=== PATIENT | female | born 1995 | race Caucasian/White ===

== ENCOUNTER 2020-05-29 15:31 | Outpatient (CLI) | payer OTHER, SELFPAY ==
[2020-05-29 16:14] LABS: SARS-CoV-2 Ag Negative (Negative)
== END 2020-05-29 15:32 | disposition home or self-care (01) ==
LOC: CHSLAB 15:38
PROVIDERS: PCP Internal Medicine; Visit Provider Internal Medicine
DX: Z20.828 Contact with and (suspected) exposure to other viral communicable diseases (principal)
CPT/HCPCS: 87426

== ENCOUNTER 2020-06-15 07:32 | Outpatient (CLI) | payer OTHER, SELFPAY ==
[2020-06-15 08:12] LABS: SARS-CoV-2 Ag Negative (Negative)
== END 2020-06-15 07:33 | disposition home or self-care (01) ==
DX: Z20.828 Contact with and (suspected) exposure to other viral communicable diseases (principal)
CPT/HCPCS: 87426

== ENCOUNTER 2021-06-14 09:48 | Outpatient (CLI) | payer OTHER, SELFPAY ==
[2021-06-14 11:10] LABS: SARS-CoV-2 RNA PCR Positive (Negative)
== END 2021-06-14 09:49 | disposition home or self-care (01) ==
LOC: CHSLAB 09:51
PROVIDERS: PCP Internal Medicine; Visit Provider Internal Medicine
DX: U07.1 COVID-19 (principal); J06.9 Acute upper respiratory infection, unspecified
CPT/HCPCS: C9803; U0003; U0005

== ENCOUNTER 2021-09-24 07:29 | Outpatient (CLI) | payer OTHER, SELFPAY ==
[2021-09-24 08:46] LABS: Eosinophils Absolute Auto 0.03 K/mm3 (0.02-0.50); Eosinophils Percent Auto 0.4 % (1.0-6.0); Hematocrit 39.9 % (35.0-49.0); Hemoglobin 13.5 g/dL (12.0-15.0); Immature Granulocyte Absolute 0.04 K/mm3 (0.00-0.00); Immature Granulocyte Percent A 0.5 % (0.0-0.0); Lymphocytes Absolute Auto 1.03 K/mm3 (1.10-4.50); Lymphocytes Percent Auto 13.5 % (18.0-42.0); Mean Corpuscular HGB Conc 33.8 g/dL (32.0-36.0); Mean Corpuscular Hemoglobin 30.7 pg (27.0-31.0); Mean Corpuscular Volume 90.7 fL (78.0-102.0); Mean Platelet Volume 9.8 fl (9.2-11.8); Monocytes Absolute Auto 0.31 K/mm3 (0.10-0.90); Monocytes Percent Auto 4.1 % (2.0-11.0); Neutrophils Absolute Auto 6.2 K/mm3 (1.7-7.2); Neutrophils Percent Auto 81.5 % (50.0-70.0); Platelet Count Result 241 K/mm3 (150-420); Red Cell Distribution Width 13.2 % (11.6-14.4); White Blood Count 7.6 K/mm3 (4.8-10.8)
[2021-09-24 09:24] LABS: Glucose 1 Hour PP 50gm Dose 177 mg/dL (70-130)
[2021-09-24 09:26] LABS: HIV 1 P24 AG Negative (Negative); HIV 1/2 AB Negative (Negative)
== END 2021-09-24 07:30 | disposition home or self-care (01) ==
LOC: CHSLAB 07:31
PROVIDERS: PCP Internal Medicine; Visit Provider Obstetrics & Gynecology
DX: Z34.90 Encounter for supervision of normal pregnancy, unspecified, unspecified trimester (principal)
CPT/HCPCS: 36415; 82947; 85025; 86703

== ENCOUNTER 2021-09-28 07:04 | Outpatient (CLI) | payer OTHER, SELFPAY ==
[2021-09-28 07:49] LABS: Glucose Fasting Gestational 78 mg/dL (>/=95)
[2021-09-28 08:37] LABS: Glucose 1 Hour Gest 169 mg/dL (70-130)
[2021-09-28 09:49] LABS: Glucose 2 Hour Gest 156 mg/dL (<155)
[2021-09-28 10:43] LABS: Glucose 3 Hour Gest 132 mg/dL (>/=140)
== END 2021-09-28 07:05 | disposition home or self-care (01) ==
LOC: CHSLAB 07:06
PROVIDERS: PCP Internal Medicine; Visit Provider Obstetrics & Gynecology
DX: R73.09 Other abnormal glucose (principal)
CPT/HCPCS: 36415; 82951; 82952

== ENCOUNTER 2021-11-22 08:21 | Outpatient (RCR) | payer OTHER, SELFPAY ==
[2021-11-16 17:50] VITALS: BP 119/65; PULSE 84
[2021-11-19 10:33] VITALS: PULSE 84
--- NOTE | ~2021-11-22 | US_ITS ---
EXAMINATION: US OB BPP wo non-stress DATE: 11/16/2021 17:47 INDICATION: Intrauterine growth restriction TECHNIQUE: Real-time ultrasound of the pelvis was performed. COMPARISON: 11/15/2021. FINDINGS: There is a single living fetus in breech presentation. The placenta is anterior-fundal and clear of the cervical os. heart rate is 144 beats per minute (bpm). The amniotic fluid index is 7.1 cm, which is low-normal.] Biophysical profile performed by the technologist: breathing (30 sec sustained breathing in 30 minutes): 2 out of 2 movement (3 gross body movements in 30 minutes: 2 out of 2 tone (one episode of piafseq-xxudknmzd-oavoeob limb movement): 2 out of 2 Amniotic fluid pocket (2 cm): 2 out of 2 Total score: 8 out of 8 IMPRESSION: 1. Single living fetus in breech presentation.] 2. Low normal MALI of 7.1 cm 3. Biophysical profile 8 out of 8. Reviewed, dictated and finalized at location K.
--- NOTE | ~2021-11-22 | US_ITS ---
EXAMINATION: US OB follow up w BPP DATE: 11/19/2021 10:34 INDICATION: Decelerations. Third trimester. TECHNIQUE: Real-time ultrasound of the pelvis was performed. COMPARISON: Ultrasound 11/16/2021 FINDINGS: There is a single living fetus in breech presentation. The placenta is anterior. There is a 14 mm ve nous nava in the placenta. heart rate is 147 beats per minute (bpm). The amniotic fluid index i s 11.3 cm, which is normal. Biophysical profile performed by the technologist: breathing (30 sec sustained breathing in 30 minutes): 2 out of 2 movement (3 gross body movements in 30 minutes): 2 out of 2 tone (one episode of obvzbgk-ifgysuhpc-eyhfmsd limb movement): 2 out of 2 Amniotic fluid pocket (2 cm): 2 out of 2 Total score: 8 out of 8 IMPRESSION: 1. Single living fetus in breech presentation. 2. Biophysical profile 8 out of 8. Reviewed, dictated and finalized at location A.
[2021-11-22 08:52] VITALS: BP 123/76; PULSE 112
== END 2021-12-03 10:20 | disposition home or self-care (01) ==
LOC: ANHOBOP 08:21
PROVIDERS: PCP Internal Medicine; Visit Provider Obstetrics & Gynecology
DX: O36.5930 Maternal care for other known or suspected poor fetal growth, third trimester, not applicable or unspecified (principal); Z3A.36 36 weeks gestation of pregnancy
CPT/HCPCS: 59025; 76816; 76819

== ENCOUNTER 2021-11-24 04:42 | Inpatient (IN) | payer OTHER, SELFPAY ==
[2021-11-24] VITALS (56 sets, daily range): BP systolic 88–131; BP diastolic 50–108; PULSE 68–172; RESP 16–22; TEMP 36.4–36.9; O2SAT 97–100; BMI 32.5
[2021-11-24 05:16] LABS: Basophils Percent Auto 0.2 % (0.2-1.2); Eosinophils Absolute Auto 0.1 K/mm3 (0-0.3); Eosinophils Percent Auto 0.6 % (0-4.4); Hematocrit 41.9 % (37.0-47.0); Hemoglobin 13.8 g/dL (12.0-15.0); Immature Granulocyte Absolute 0.08 K/mm3 (0.00-0.031); Immature Granulocyte Percent A 0.9 % (0-0.5); Lymphocytes Absolute Auto 1.53 K/mm3 (0.9-3.2); Lymphocytes Percent Auto 16.4 % (18.3-44.2); Mean Corpuscular HGB Conc 32.9 g/dl (32-36); Mean Corpuscular Hemoglobin 29.7 pg (26-34); Mean Corpuscular Volume 90.1 fl (80-100); Mean Platelet Volume 10.6 fl (7.4-10.4); Monocytes Absolute Auto 0.6 K/mm3 (0.1-0.6); Monocytes Percent Auto 6.7 % (2.6-8.5); Neutrophils Percent Auto 75.2 % (45.5-73.1); Platelet Count Result 201 k/mm3 (150-375); Red Blood Count 4.65 M/mm3 (4.2-5.4); Red Cell Distribution Width 13.5 % (11.5-14.5); White Blood Count 9.3 K/mm3 (4.5-10.0)
[2021-11-24] MEDS: LACTATED RINGERS 1,000 ML 125 ML IV CONT ×2 (05:16→06:14)
--- NOTE | 2021-11-24 05:20 | LDADM ---
This patient, Brittany Eddy, was admitted to Labor/Delivery/Recovery 120 on 11/24/21 at 04:42. Plans for labor, pain management and were discussed with patient. Patient/family oriented to hospital policies and general routines including ID bracelet, bed and alarms, visiting hours, pain management, procedures, bathroom and other care routines, personal items, smoking policy, room service/diet and guest tray routines, infant security routines, and visiting hours. Patient/Family are encouraged to report perceived risks to care and to ask questions if they do not understand what they are told or what they should do. See OBIX for further documentation.
[2021-11-24 06:08] LABS: HIV 1/2 Ab P24 Ag Result Negative (Negative)
--- NOTE | 2021-11-24 06:55 | PM.IMHP ---
H&P: HPI History of Present Illness Date/Time: 11/24/21 06:55 Chief Complaint: Brittany is a 26yo @ 37.1wks (KAYLA [birth year]) who presents for scheduled due to breech and IUGR. She had low fluid last week of 7cm. She reports good movement. No ctx, vb, lof. Her is complicated by: - conceived by IUI - H/o oligohydramnios; 7cm, most recently 11cm - COVID + 06/15...serial growth scans - Elevated glucola; normal 3hr OGTT - IUGR w/ AC @ 3%ile - BREECH MALPRESENTATION-- for c/s Review of Systems Review of Systems: All systems reviewed & are unremarkable except as noted in HPI and below (HPI) [facility] Past Medical History Medical History Encounter for fertility preservation procedure prior to surgical removal of gonads Family History Family History Father Hypertension Social History Social History Smoking status: Never smoker Substance use: never Spiritual care concerns: No Meds Home Medications and Allergies Home Medications Medication Instructions Recorded Confirmed Type aspirin 81 mg capsule 81 mg PO DAILY 08/02/21 11/24/21 History vitamins-iron fumarate 65 1 tablet PO DAILY 08/02/21 11/24/21 History mg iron-folic acid 1 mg tablet cholecalciferol (vitamin D3) 50 2,000 unit PO DAILY 11/16/21 11/24/21 History mcg (2,000 unit) capsule (Vitamin D3) Allergies Allergy/AdvReac Type Severity Reaction Status Date / Time No Known Allergies Allergy Verified 11/04/21 15:28 Vital Signs Vital Signs - 24 hr 11/24/21 05:12 11/24/21 05:29 Temperature 97.9 F Pulse Rate 96 Blood Pressure 118/71 Exam Const: General: cooperative, healthy appearing, comfortable and no acute distress Resp: Effort & Inspection: normal respiratory effort Cardio: Rate: regular rate GI: GI Palp: No abdominal tenderness and Yes Soft to palpation : Other: FHT's: 130's/mod james/ + accels/ no decels - cat 1 TOCO: irritability Presentation: BREECH Membranes: intact Neuro: General: patient oriented x3 Extrem: General: normal to inspection Psych: Appearance: grossly normal Affect: normal affect Attitude: cooperative H&P: Results Labs Labs: Short CBC 11/24/21 Range/Units 05:01 WBC 9.3 (4.5-10.0) K/mm3 Hgb 13.8 (12.0-15.0) g/dL Hct 41.9 (37.0-47.0) % Plt Count 201 (150-375) k/mm3 Assessment and Plan Assessment and plan (1) Malpresentation of fetus: Qualifiers: malpresentation type: breech Fetus number: single or unspecified fetus Qualified Code(s): O32.1XX0 - Maternal care for breech presentation, not applicable or unspecified Code(s): O32.9XX0 - Maternal care for malpresentation of fetus, unspecified, not applicable or unspecified Status: Acute (2) IUGR (intrauterine growth restriction): Status: Acute (3) Blood glucose abnormal: Code(s): R73.09 - Other abnormal glucose Status: Acute (4) COVID-19 virus infection: Code(s): U07.1 - COVID-19 Status: Acute Plan - Patient re-scanned and breech malpresentation confirmed - Proceed with primary due to malpresentation of a growth restricted baby - Risks and benefits explained in detail - GBS negative
--- NOTE | 2021-11-24 07:17 | WPDHPUPDATE1 ---
History and Physical Update Update Date/Time: 11/24/21 07:17 History and Physical has been reviewed, including an updated exam of the patient. There are NO changes in the patient's condition. Risks, benefits, and alternatives have been discussed and questions answered. Patient agrees to proceed with procedure.
--- NOTE | 2021-11-24 07:19 | WPDANESEPPF ---
Anes - Initial Pre Proc Eval Procedure: Operation Date: 11/24/21 07:30 Proposed Procedures p Section - Lilo Dove MD Date/Time: 11/24/21 07:19 Surgeon: Lilo Dove MD Pre Op Diagnosis: C/S Patient Data Age: 26 Gender: F Height: 1.55 m Weight: 78 kg Last Vital Signs Temp 36.6 C 11/24/21 05:29 Pulse 96 11/24/21 05:12 BP 118/71 11/24/21 05:12 Allergies Allergy/AdvReac Type Severity Reaction Status Date / Time No Known Allergies Allergy Verified 11/04/21 15:28 Home Medications Medication Instructions Recorded Confirmed Type aspirin 81 mg capsule 81 mg PO DAILY 08/02/21 11/24/21 History vitamins-iron fumarate 65 1 tablet PO DAILY 08/02/21 11/24/21 History mg iron-folic acid 1 mg tablet cholecalciferol (vitamin D3) 50 2,000 unit PO DAILY 11/16/21 11/24/21 History mcg (2,000 unit) capsule (Vitamin D3) Laboratory Tests 11/24/21 11/24/21 11/24/21 05:01 05:01 05:01 WBC 9.3 K/mm3 K/mm3 (4.5-10.0) RBC 4.65 M/mm3 M/mm3 (4.2-5.4) Hgb 13.8 g/dL g/dL (12.0-15.0) Hct 41.9 % % (37.0-47.0) MCV 90.1 fl fl (80-100) MCH 29.7 pg pg (26-34) MCHC 32.9 g/dl g/dl (32-36) RDW 13.5 % % (11.5-14.5) Plt Count 201 k/mm3 k/mm3 (150-375) MPV 10.6 fl H fl (7.4-10.4) Immature Gran % (Auto) 0.9 % H % (0-0.5) Neut % (Auto) 75.2 % H % (45.5-73.1) Lymph % (Auto) 16.4 % L % (18.3-44.2) [place] % (Auto) 6.7 % % (2.6-8.5) Eos % (Auto) 0.6 % % (0-4.4) Baso % (Auto) 0.2 % % (0.2-1.2) Lymph # (Auto) 1.53 K/mm3 K/mm3 (0.9-3.2) [place] # (Auto) 0.6 K/mm3 K/mm3 (0.1-0.6) Eos # (Auto) 0.1 K/mm3 K/mm3 (0-0.3) Baso # (Auto) 0.0 K/mm3 K/mm3 (0.0-0.1) Abs Immat Gran (auto) 0.08 K/mm3 H K/mm3 (0.00-0.031) Absolute Neuts (auto) 7.0 K/mm3 H K/mm3 (1.3-6.7) Absolute Nucleated RBC 0.0 K/mm3 K/mm3 (0.0-0.012) Nucleated RBC % 0.0 % % (0.0-0.2) RPR Pending HIV 1&2 Ab/P24 Ag 4thGn Blood Type A Positive Antibody Screen Negative 11/24/21 05:01 WBC RBC Hgb Hct MCV MCH MCHC RDW Plt Count MPV Immature Gran % (Auto) Neut % (Auto) Lymph % (Auto) [place] % (Auto) Eos % (Auto) Baso % (Auto) Lymph # (Auto) [place] # (Auto) Eos # (Auto) Baso # (Auto) Abs Immat Gran (auto) Absolute Neuts (auto) Absolute Nucleated RBC Nucleated RBC % RPR HIV 1&2 Ab/P24 Ag 4thGn Negative (Negative) Blood Type Antibody Screen Patient hx anesthesia problems: none Family hx anesthesia problems: none Results Review: All pre-operative results and documents have been reviewed as part of the pre-operative evaluation. [facility] Past Medical History Medical History Encounter for fertility preservation procedure prior to surgical removal of gonads Family History Family History Father Hypertension Social History Social History Smoking status: Never smoker Substance use: never Spiritual care concerns: No Anes - Eval Final PreProcedure Day of Procedure 11/24/21 07:19 Patient weight: overweight Heart: regular rate and rhythm Lungs: clear to auscultation Airway: Mallampati scale class II Neurological: alert and oriented Last oral intake: >/= 8 hours ASA classification: II Emergent: no Anesthetic plan: proceed Anesthesia type and monitoring: regional spinal and standard monitoring Results Review: All pre-operative results and docume
--- NOTE | 2021-11-24 08:36 | PM.OBPRVD ---
OB - Delivery Note Procedure Delivery date: 11/24/21 Procedure: Procedures Operation Date: 11/24/21 07:30 <No data on this case meets the specified criteria> Events: Breech Presentation, Intrauterine Growth Restriction (IUGR) and Oligohydramnios Route of delivery: Quantitative Blood Loss (ml): 695 Anesthesia type: Spinal Disposition: Floor Baby Date of : 11/24/21 Time of : 08:02 Weeks of gestation at delivery: 37 Infant gender: Male Weight (pounds): 6 Weight (ounces): 4 presentation: tao breech Placenta delivery description: Expressed Cord Vessel Description: 3 Vessels, Nuchal Cord (x2), Loose, Reduced and Clamped/Cut score one minute: 8 score five minutes: 9 Narrative: She was counseled on all risks and benefits in detail. She was taken to the operating room where spinal was placed. She was then prepped and draped in the normal sterile fashion. She received 2g Ancef and a time out was performed. A Pfannenstiel incision was made in the skin and carried down to the underlying fascia. The fascia was nicked on either side of the midline and the fascial incision was extended laterally and superiorly. The fascia was then elevated and the underlying rectus muscles were dissected off the fascia, superiorly and inferiorly. The rectus muscles were then in the midline and the peritoneum was entered bluntly. Once adequate exposure was obtained, a Mobius self retractor was placed within the abdomen. A bladder flap was created. A low transverse incision was made on the lower uterine segment and clear fluid was noted. The sacrum was brought to the hysterotomy and normal breech maneuvers were performed and the infant was easily delivered; nuchal was reduced. The infant had spontaneous cry and the mouth and nose were bulb suctioned. The cord was clamped and cut and the infant was handed off to the awaiting pediatric nurse. A segment of the cord was collected for cord gases. The remaining cord blood was collected for typing. With pitocin infusing, the placenta delivered with gentle traction on the cord without complications. The uterus was then cleared out of all clots and debris using a clean, moist lap. The hysterotomy was then repaired in a running fashion using 0 Vicryl. A second layer imbricating suture was then made using 0 Vicryl. The hysterotomy was found to be hemostatic and good uterine tone was noted. The bilateral adnexa were examined and found to be normal. The pelvis was cleared of all clots and fluid. The Mobius retractor was removed from the abdomen. The peritoneum, muscle, and fascia were examined and made hemostatic with bovie cautery. The fascia was then repaired using a 0 Vicryl suture in a running fashion. The subcutaneous tissue was then irrigated and made hemostatic with bovie cautery. The subcutaneous tissue was then reapproximated using 2-0 Vicryl. The skin was then closed using 4-0 Monocryl in a running subcuticular fashion. Sponge, lap, needle and instrument counts were correct at the end of the procedure x2. The patient tolerated the procedure well and was taken to recovery in a stable condition. [facility] Delivery Billing Delivery Delivery: Delivery Charge
[2021-11-24] MEDS: KETOROLAC 30 MG/ML VIAL (*BKC) IV PUSH ×2 (10:55→16:44)
--- NOTE | 2021-11-24 11:00 | PC.NURSE ---
Patient transferred to post room #287 via 1100. Support person present. Oriented to unit, room, information board, rooming in, admission packet and security measures. Patient verbalizes understanding.
[2021-11-24 11:32] LABS: Rapid Plasma Reagin Non-Reactive (NonReactive)
--- NOTE | 2021-11-24 14:16 | PC.NURSE ---
[id number] Introductions were made, then consulted with patient to assess needs related to . Mother led the conversation with her wanting to pump and feed mostly but will try to breastfeed. Mother works well with her infant with encouragement and education. Encouraged understanding of the benefits of skin to skin (unwrapping and placing vertically on her chest), responsive feeding and how to watch for early feeding signs, frequency of feeding on demand about every 8-12 times in 24 hours (every 2-3 hours), milk production, duration of feeding, signs of adequate intake/output and how to record on the feeding sheet. Reviewed positioning and ear, shoulder, hip alignment, supporting the breast, asymmetrical latch (off-center), and leading with the chin with a big open side gape. Nipple care reviewed with optimal latch and good positioning. attempted several times. opens with big wide gape, mother brings infant to the breast and gets lined up for an optimal latch but infant holds the nipples in mouth with open wide gape. At times will attempt to latch to the nipple. Mother plans on pumping and feeding. Reviewed stimulating milk production with hand expression or electric pumping. Mother decides to electric double pump. Reminding mother of comfort measures of healing with a warm and wet washcloth to rinse breast, then leave open to air-dry as needed. Reviewed good handwashing when or touching the breast/nipples to prevent infection. [id number] Breast pump provided due to ineffective . Instructions given on cleaning, care, usage, there should be no pain, pumping schedule for milk production, collection, and storage of human milk. Parents are encouraged to record pumping schedule on the feeding sheet. Patient was assessed for correct placement, flange size (recommended flange size 21 mm and patient has one at home), to pump for comfort and nipple stretching/stimulation for adequate milk production. Resources used to facilitate learning were used with the visual handouts/ tool/mom and baby guide. RN syringe fed 2 mls to infant. Mother voiced understanding of responsive feedings, stimulating with skin to skin, hand expressed colostrum, touch, talking to infant to encourage if it has been 2 -3 hours since the start of the last , to call if does not latch or there is discomfort with . Reported to the primary RN.
[2021-11-24] MEDS: DEXTROSE 5%/0.45% SOD CHL 1,000 ML 125 ML IV CONT (15:24)
[2021-11-24] MEDS: HYDROcodone/acetaminophen (*CRX) 5-325 MG TABLET 1 TAB PO ×3 (15:26→23:56)
[2021-11-24] MEDS: DOCUSATE SODIUM 100 MG CAPSULE PO (15:26)
[2021-11-24] MEDS: SIMETHICONE 80 MG TAB.CHEW PO ×2 (20:15→23:56)
[2021-11-24] MEDS: IBUPROFEN 600 MG TABLET PO (23:57)
[2021-11-25 03:45] VITALS: BP 92/51; PULSE 94; RESP 18; TEMP 36.9
[2021-11-25 04:15] VITALS: BP 102/54; PULSE 93
[2021-11-25] MEDS: HYDROcodone/acetaminophen (*CRX) 5-325 MG TABLET 1 TAB PO ×5 (04:23→19:30)
[2021-11-25] MEDS: SIMETHICONE 80 MG TAB.CHEW PO ×2 (04:23→08:16)
[2021-11-25 05:22] LABS: Basophils Percent Auto 0.3 % (0.2-1.2); Eosinophils Absolute Auto 0.1 K/mm3 (0-0.3); Eosinophils Percent Auto 0.7 % (0-4.4); Hematocrit 30.4 % (37.0-47.0); Hemoglobin 10.1 g/dL (12.0-15.0); Immature Granulocyte Absolute 0.07 K/mm3 (0.00-0.031); Immature Granulocyte Percent A 0.6 % (0-0.5); Lymphocytes Absolute Auto 1.48 K/mm3 (0.9-3.2); Lymphocytes Percent Auto 12.4 % (18.3-44.2); Mean Corpuscular HGB Conc 33.2 g/dl (32-36); Mean Corpuscular Hemoglobin 30.3 pg (26-34); Mean Corpuscular Volume 91.3 fl (80-100); Mean Platelet Volume 11.5 fl (7.4-10.4); Monocytes Absolute Auto 0.6 K/mm3 (0.1-0.6); Monocytes Percent Auto 4.6 % (2.6-8.5); Neutrophils Absolute Auto 9.7 K/mm3 (1.3-6.7); Neutrophils Percent Auto 81.4 % (45.5-73.1); Platelet Count Result 176 k/mm3 (150-375); Red Blood Count 3.33 M/mm3 (4.2-5.4); Red Cell Distribution Width 13.8 % (11.5-14.5); White Blood Count 11.9 K/mm3 (4.5-10.0)
--- NOTE | 2021-11-25 07:10 | PM.OBPNVD ---
OB - PN: Subj Subjective Date/time seen: 11/25/21 07:10 Narrative: POD#1 Brittany reports doing well today. Her bleeding is light. Her pain is controlled with PO meds. She is tolerating regular diet, voiding, and has ambulated to the restroom; no gas. She denies any issues with her incision. She is breast feeding. She would like her son circumcised. OB - PN: Obj Data Labs CBC & Chem 7: 11/25/21 03:57 Labs: Laboratory Results - last 24 hr 11/24/21 11/25/21 05:01 03:57 WBC 11.9 H RBC 3.33 L Hgb 10.1 L D Hct 30.4 L MCV 91.3 MCH 30.3 MCHC 33.2 RDW 13.8 Plt Count 176 MPV 11.5 H Immature Gran % (Auto) 0.6 H Neut % (Auto) 81.4 H Lymph % (Auto) 12.4 L [place] % (Auto) 4.6 Eos % (Auto) 0.7 Baso % (Auto) 0.3 Lymph # (Auto) 1.48 [place] # (Auto) 0.6 Eos # (Auto) 0.1 Baso # (Auto) 0.0 Abs Immat Gran (auto) 0.07 H Absolute Neuts (auto) 9.7 H Absolute Nucleated RBC 0.0 Nucleated RBC % 0.0 RPR Non-reactive OB - PN A/P Plan Plan: routine care Comments: - continue PO hydration, pain meds, regular diet, ambulating, breast feeding/pumping Time Spent With Patient Time: Total time spent is greater than 50% in coordination of care (as documented) at patient's floor/unit and/or counseling patient: Review of Systems Constitutional: Constitutional: Denies chills, Denies fever(s) and Denies headache(s) Eyes: Eyes: Denies change in vision ENT: Denies dizziness and Denies headache(s) Cardiovascular: Cardiovascular: Denies chest pain, Denies palpitations and Denies dyspnea Respiratory: Respiratory: Denies cough and Denies dyspnea Gastrointestinal: Gastrointestinal: Denies nausea and Denies vomiting Genitourinary: Comments: normal bleeding Neurologic: Denies dizziness and Denies headache(s) Endocrine: Endocrine: Denies palpitations Exam Const: General: cooperative, comfortable and no acute distress Orientation/consciousness: patient oriented x3 Resp: Effort & Inspection: normal respiratory effort Auscultation: clear to auscultation bilaterally Cardio: Rate: regular rate GI: Inspection: non-distended and incision (covered with clean dressing) GI Palp: Yes abdominal tenderness (appropriate) and Yes Soft to palpation Auscultation: normal bowel sounds : Other: fundus firm Skin: General skin exam: normal color Neuro: General: patient oriented x3 Extrem: General: normal to inspection Psych: Appearance: grossly normal Affect: normal affect Attitude: cooperative
[2021-11-25 07:50] VITALS: BP 108/63; PULSE 99; RESP 18; TEMP 37.1; O2SAT 99
[2021-11-25] MEDS: MULTIVIT/MIN/PREN/FOL AC/IRON TABLET 1 TAB PO (08:10)
[2021-11-25] MEDS: DOCUSATE SODIUM 100 MG CAPSULE PO ×2 (08:10→16:30)
[2021-11-25] MEDS: IBUPROFEN 600 MG TABLET PO ×3 (08:10→22:45)
--- NOTE | 2021-11-25 09:24 | WPDANLDPN2 ---
Anes-Prog Note L&D Date/Time: 11/25/21 09:24 Comfortable throughout: section Neuraxial method: spinal Epidural/Spinal procedure site: clean & non-tender Neuro status: Neuro function grossly intact. Cardiovascular status: normal Respiratory status: normal Airway patency: baseline Mental status: baseline Post-Op hydration status: normal Vital Signs: Last Vital Signs Temp 37.1 C 11/25/21 07:50 Pulse 99 11/25/21 07:50 Resp 18 11/25/21 07:50 BP 108/63 11/25/21 07:50 Pulse Ox 99 11/25/21 07:50 O2 Del Method Room Air 11/25/21 04:00 Pain score (VAS): 07/05 I/O: Intake & Output 11/24/21 11/25/21 11/25/21 23:59 07:59 15:59 Intake Total 1240 1100 Output Total 2800 Balance 1240 -1700 Post-procedural complaints: none Patient feedback: Patient satisfied with anesthetic care.
--- NOTE | 2021-11-25 09:25 | WPDANLDNPN2 ---
Anes-Prog Note L&D-Neuraxial Date/Time: 11/25/21 09:25 Neuraxial medications: intrathecal PF morphine Opiod-related complaints: none Patient feedback: Patient satisfied with post-operative pain management.
[2021-11-25 19:25] VITALS: BP 112/58; PULSE 97; RESP 16; TEMP 36.3; O2SAT 100
[2021-11-25] MEDS: HYDROcodone/acetaminophen (*CRX) 10-325 MG TABLET 1 TAB PO (22:46)
[2021-11-26] MEDS: IBUPROFEN 600 MG TABLET PO ×2 (04:44→11:36)
[2021-11-26] MEDS: HYDROcodone/acetaminophen (*CRX) 5-325 MG TABLET 1 TAB PO ×2 (04:44→11:35)
--- NOTE | 2021-11-26 07:29 | PM.OBPNVD ---
OB - PN: Subj Subjective Date/time seen: 11/26/21 06:54 Narrative: POD#1 Brittany reports doing well today. Her bleeding remains light. Her pain is controlled with meds. She is tolerating regular diet, voiding, passing gas, and ambulating without issues. She denies any issues with her incision. She is breast feeding/pumping. She would like her son circumcised. She would like to go home today. OB - PN: Obj Data Labs CBC & Chem 7: 11/25/21 03:57 OB - PN A/P Assessment and Plan (1) S/P section: Code(s): Z98.891 - History of uterine scar from previous surgery Status: Acute Plan Plan: routine care Comments: - Pelvic rest; take meds as prescribed - Incision care/no heavy lifting - ER return precautions: fever, n/v/abd pain, bleeding, HTN Time Spent With Patient Time: Total time spent is greater than 50% in coordination of care (as documented) at patient's floor/unit and/or counseling patient: Review of Systems Constitutional: Constitutional: Denies chills, Denies fever(s) and Denies headache(s) Eyes: Eyes: Denies change in vision ENT: Denies dizziness and Denies headache(s) Cardiovascular: Cardiovascular: Denies chest pain, Denies palpitations and Denies dyspnea Respiratory: Respiratory: Denies cough and Denies dyspnea Gastrointestinal: Gastrointestinal: Denies nausea and Denies vomiting Genitourinary: Comments: normal bleeding Neurologic: Denies dizziness and Denies headache(s) Endocrine: Endocrine: Denies palpitations Exam Const: General: cooperative, comfortable and no acute distress Orientation/consciousness: patient oriented x3 Resp: Effort & Inspection: normal respiratory effort Auscultation: clear to auscultation bilaterally Cardio: Rate: regular rate GI: Inspection: non-distended and incision (covered with clean dressing) GI Palp: Yes abdominal tenderness (appropriate) and Yes Soft to palpation Auscultation: normal bowel sounds : Other: fundus firm Skin: General skin exam: normal color Neuro: General: patient oriented x3 Extrem: General: normal to inspection Psych: Appearance: grossly normal Affect: normal affect Attitude: cooperative
[2021-11-26 07:35] VITALS: BP 116/63; PULSE 86; RESP 16; TEMP 36.6; O2SAT 100
[2021-11-26 08:00] VITALS: PULSE 86; RESP 16; O2SAT 100
[2021-11-26] MEDS: DOCUSATE SODIUM 100 MG CAPSULE PO (11:35)
[2021-11-26] MEDS: MULTIVIT/MIN/PREN/FOL AC/IRON TABLET 1 TAB PO (11:35)
--- NOTE | 2021-11-26 12:08 | PC.NURSE ---
Patient viewed the discharge video Mother & Baby Care, The First Two Weeks . Patient was given the opportunity and encouraged to ask questions. Patient verbalized understanding of information shared and has been given the mother/baby guide for home reference.
--- NOTE | 2021-11-26 12:42 | PC.NURSE ---
0800 - Primary RN reported mother is not putting to breast.
[2021-11-27 08:50] VITALS: BP 111/70; PULSE 89; RESP 20; TEMP 36.7; O2SAT 100
--- NOTE | 2021-12-01 08:00 | PM.OBDSVD ---
DS: Admitting Diagnosis Discharge Date 11/26/21 Admitting Diagnosis Breech IUGR Oligohydramnios DS: Discharge Diagnosis Discharge Diagnosis (1) S/P section: Code(s): Z98.891 - History of uterine scar from previous surgery Status: Acute OB - DS: Summary OB Procedures : NST and Ultrasound OB Procedures Intrapartum: low cervical, transverse OB Procedures: : None Peripartum Data Infant Delivery Method: Section Procedures: Procedures Operation Date: 11/24/21 07:30 Actual Procedure Side Surgeon p Section Not Applicable Lilo Dove MD complications: none Rowena 1: Gender: Male Disposition of : home Status at Discharge Functional status at discharge: independent ambulation Overall status at discharge: patient is back to baseline Time Spent with Patient Time attestation: Total time spent providing and/or coordinating discharge services: Time spent: Less than 30 minutes Exam Const: General: cooperative, comfortable and no acute distress Orientation/consciousness: patient oriented x3 Resp: Effort & Inspection: normal respiratory effort Auscultation: clear to auscultation bilaterally Cardio: Rate: regular rate GI: Inspection: non-distended and incision (covered w/ clean dressing) GI Palp: No abdominal tenderness and Yes Soft to palpation Auscultation: normal bowel sounds : Other: fundus firm Skin: General skin exam: normal color Neuro: General: patient oriented x3 Extrem: General: normal to inspection Psych: Appearance: grossly normal Affect: normal affect Attitude: cooperative DS: Data Data Completed and Pending Completed studies during hospitalization: Pending at discharge 11/24/21 08:04 Surgical [PTH] Routine Discharge Plan Discharge Attending physician on discharge: Lilo Dove Consulting providers: Melo Rodriguez Sherri M. Discharging Clinician: Lilo Dove Anticipated Discharge Date/Time: 11/26/21 12:00 Patient Disposition: Home, Self-Care Activity: pelvic rest Diet: as tolerated and regular Discharge Instructions: Education: Mom and Baby Guide Given to: Mother Follow-Up: Call your delivering provider's office for an appointment to be seen in: 4 Weeks Mom and baby should come to the [facility] for the follow-up appointment. Appointment Date/Time: Saturday, November 27, 2021 at 9:00 a.m. What to expect at your follow-up visit: Blood Pressure Check Physical Assessment Call [phone] if you are unable to keep your appointment time. BREAST CARE: * Wear a snug supportive bra. * For engorgement discomfort: Breast Feeding: * Apply warm moist washcloths * Express milk as needed to relieve engorgement * Wear loose clothing Bottle Feeding: * May apply ice packs * For sore nipples: * Identify correct latch-on * Apply warm moist washcloths before and after nursing * Air dry nipples after nursing * May apply Lansinoh cream to nipples ABDOMINAL INCISION: (if applicable) * Allow incision to air dry * Do NOT use lotions for powders on your incision * When showering, allow soap and water to run over the incision, but do not wash incision EPISIOTOMY/PERINEAL CARE: * Change your pad frequently throughout the day * You may take sitz baths several times a day (fill your bathtub with warm water and soak for 20 minutes.) Do NOT bathe in the water * No tub baths until seen by your physician - You may shower ACTIVITY: * Rest as much as possible. * Do not exercise or lift anything heavier than your baby (such as laundry or other children.) * Avoid stairs or driving as much as possible. * Do not put anything into the vagina. No douching, tampons, or sexual activity until seen by physician. NOTIFY PHYSICIAN IF YOU
== END 2021-11-26 14:20 | disposition home or self-care (01) | DRG 787 ==
LOC: ANHLDR 04:49 → ANHOB2 11:06
PROVIDERS: Admitting Provider Obstetrics & Gynecology; PCP Internal Medicine; Visit Provider Obstetrics & Gynecology
PROC: 10D00Z1 Extraction of Products of Conception, Low, Open Approach (ICD-10-PCS; CPT 59514; principal; 2021-11-24 07:30)
DX: O32.1XX0 Maternal care for breech presentation, not applicable or unspecified (principal); O41.03X0 Oligohydramnios, third trimester, not applicable or unspecified; O36.5930 Maternal care for other known or suspected poor fetal growth, third trimester, not applicable or unspecified; O99.814 Abnormal glucose complicating childbirth; O69.81X0 Labor and delivery complicated by cord around neck, without compression, not applicable or unspecified; Z3A.37 37 weeks gestation of pregnancy; Z37.0 Single live birth; Z86.16 Personal history of COVID-19
CPT/HCPCS: 36415; 85025; 86592; 86703; 86850; 86900; 86901; 88307; A9270; G0432; J0131; J1885; J2274; J2590; J7120

== ENCOUNTER 2023-05-15 09:19 | Outpatient (CLI) | payer OTHER, SELFPAY ==
[2023-05-18 06:43] LABS: Progesterone 5.2 ng/mL (***)
== END 2023-05-15 09:20 | disposition home or self-care (01) ==
LOC: CHSLAB 09:21
PROVIDERS: PCP Internal Medicine; Visit Provider Obstetrics & Gynecology
DX: E28.2 Polycystic ovarian syndrome (principal)
CPT/HCPCS: 36415; 84144

== ENCOUNTER 2023-06-12 07:11 | Outpatient (CLI) | payer OTHER, SELFPAY ==
[2023-06-17 06:40] LABS: Progesterone 5.2 ng/mL (***)
== END 2023-06-12 07:12 | disposition home or self-care (01) ==
LOC: CHSLAB 07:13
PROVIDERS: PCP Internal Medicine; Visit Provider Obstetrics & Gynecology
DX: E28.2 Polycystic ovarian syndrome (principal)
CPT/HCPCS: 36415; 84144

== ENCOUNTER 2023-07-03 10:02 | Outpatient (CLI) | payer OTHER, SELFPAY ==
[2023-07-06 03:26] LABS: Progesterone 1.5 ng/mL (***)
== END 2023-07-03 10:03 | disposition home or self-care (01) ==
LOC: CHSLAB 10:04
PROVIDERS: PCP Internal Medicine; Visit Provider Obstetrics & Gynecology
DX: E28.2 Polycystic ovarian syndrome (principal)
CPT/HCPCS: 36415; 84144

== ENCOUNTER 2023-12-25 08:58 | Outpatient (CLI) | payer OTHER, SELFPAY ==
[2023-12-25 09:26] LABS: Basophils Absolute Auto 0.01 K/mm3 (0.00-0.10); Basophils Percent Auto 0.1 % (0.0-1.0); Eosinophils Absolute Auto 0.02 K/mm3 (0.02-0.50); Eosinophils Percent Auto 0.3 % (1.0-6.0); Hematocrit 36.8 % (35.0-49.0); Hemoglobin 13.1 g/dL (12.0-15.0); Immature Granulocyte Absolute 0.03 K/mm3 (0.00-0.00); Immature Granulocyte Percent A 0.4 % (0.0-0.0); Lymphocytes Percent Auto 19.5 % (18.0-42.0); Mean Corpuscular HGB Conc 35.6 g/dL (32-36); Mean Corpuscular Hemoglobin 30.8 pg (27.0-31.0); Mean Corpuscular Volume 86.6 fL (78.0-102.0); Mean Platelet Volume 9.3 fl (9.2-11.8); Monocytes Absolute Auto 0.36 K/mm3 (0.10-0.90); Monocytes Percent Auto 4.7 % (2.0-11.0); Neutrophils Absolute Auto 5.76 K/mm3 (1.70-7.20); Platelet Count Result 239 K/mm3 (150-420); Red Blood Count 4.25 M/mm3 (4.20-5.40); Red Cell Distribution Width 13.2 % (11.6-14.4); White Blood Count 7.7 K/mm3 (4.8-10.8)
[2023-12-25 10:08] LABS: HIV 1 P24 AG Negative (Negative); HIV 1/2 AB Negative (Negative)
[2023-12-26 08:58] LABS: Hepatitis B Surface Antigen NON-REACTIVE (NON-REACTIVE)
[2023-12-26 12:24] LABS: RPR Screen NON-REACTIVE (NON-REACTIVE)
[2023-12-26 13:28] LABS: Rubella IgG Antibody 2.76 Index
[2023-12-26 14:29] LABS: CMV IgG Antibody <0.60 U/mL
== END 2023-12-25 08:59 | disposition home or self-care (01) ==
LOC: CHSLAB 09:00
PROVIDERS: PCP Internal Medicine; Visit Provider Obstetrics & Gynecology
DX: N94.89 Other specified conditions associated with female genital organs and menstrual cycle (principal)
CPT/HCPCS: 36415; 84702; 85025; 86592; 86644; 86747; 86762; 86787; 86850; 86900; 86901; 87086; 87340; 87806

== ENCOUNTER 2024-04-16 07:49 | Outpatient (CLI) | payer OTHER, SELFPAY ==
[2024-04-16 09:12] LABS: Basophils Absolute Auto 0.01 K/mm3 (0.00-0.10); Basophils Percent Auto 0.1 % (0.0-1.0); Eosinophils Absolute Auto 0.01 K/mm3 (0.02-0.50); Eosinophils Percent Auto 0.1 % (1.0-6.0); Hematocrit 36.9 % (35.0-49.0); Hemoglobin 12.6 g/dL (12.0-15.0); Immature Granulocyte Absolute 0.03 K/mm3 (0.00-0.00); Immature Granulocyte Percent A 0.4 % (0.0-0.0); Lymphocytes Percent Auto 15.5 % (18.0-42.0); Mean Corpuscular HGB Conc 34.1 g/dL (32-36); Mean Corpuscular Hemoglobin 30.7 pg (27.0-31.0); Mean Corpuscular Volume 89.8 fL (78.0-102.0); Mean Platelet Volume 9.7 fl (9.2-11.8); Monocytes Absolute Auto 0.28 K/mm3 (0.10-0.90); Monocytes Percent Auto 3.9 % (2.0-11.0); Neutrophils Absolute Auto 5.67 K/mm3 (1.70-7.20); Platelet Count Result 220 K/mm3 (150-420); Red Blood Count 4.11 M/mm3 (4.20-5.40); Red Cell Distribution Width 13.2 % (11.6-14.4); White Blood Count 7.1 K/mm3 (4.8-10.8)
[2024-04-16 09:54] LABS: Glucose 1 Hour PP 50gm Dose 168 mg/dL (70-130)
[2024-04-16 10:18] LABS: HIV 1 P24 AG Negative (Negative); HIV 1/2 AB Negative (Negative)
[2024-04-17 13:53] LABS: RPR Screen NON-REACTIVE (NON-REACTIVE)
== END 2024-04-16 07:50 | disposition home or self-care (01) ==
LOC: CHSLAB 07:50
PROVIDERS: PCP Internal Medicine; Visit Provider Obstetrics & Gynecology
DX: Z34.90 Encounter for supervision of normal pregnancy, unspecified, unspecified trimester (principal)
CPT/HCPCS: 36415; 82947; 85025; 86592; 87806

== ENCOUNTER 2024-04-25 07:23 | Outpatient (CLI) | payer OTHER, SELFPAY ==
[2024-04-25 07:53] LABS: Glucose Fasting Gestational 85 mg/dL (>/=95)
[2024-04-25 09:04] LABS: Glucose 1 Hour Gest 152 mg/dL (70-130)
[2024-04-25 10:02] LABS: Glucose 2 Hour Gest 146 mg/dL (<155)
[2024-04-25 11:06] LABS: Glucose 3 Hour Gest 126 mg/dL (>/=140)
== END 2024-04-25 07:24 | disposition home or self-care (01) ==
LOC: CHSLAB 07:24
PROVIDERS: PCP Internal Medicine; Visit Provider Obstetrics & Gynecology
DX: Z34.90 Encounter for supervision of normal pregnancy, unspecified, unspecified trimester (principal)
CPT/HCPCS: 36415; 82951; 82952

== ENCOUNTER 2024-07-08 11:08 | Outpatient (CLI) | payer OTHER, SELFPAY ==
[2024-07-08 11:19] LABS: Hematocrit 40.1 % (35.0-49.0); Hemoglobin 13.6 g/dL (12.0-15.0); Mean Corpuscular HGB Conc 33.9 g/dL (32-36); Mean Corpuscular Hemoglobin 29.7 pg (27.0-31.0); Mean Corpuscular Volume 87.6 fL (78.0-102.0); Mean Platelet Volume 10.2 fl (9.2-11.8); Platelet Count Result 169 K/mm3 (150-420); Red Blood Count 4.58 M/mm3 (4.20-5.40); Red Cell Distribution Width 13.4 % (11.6-14.4); White Blood Count 7.1 K/mm3 (4.8-10.8)
[2024-07-08 12:16] LABS: HIV 1 P24 AG Negative (Negative); HIV 1/2 AB Negative (Negative)
== END 2024-07-08 11:09 | disposition home or self-care (01) ==
LOC: CHSLAB 11:09
PROVIDERS: PCP Internal Medicine; Visit Provider Obstetrics & Gynecology
DX: Z01.818 Encounter for other preprocedural examination (principal)
CPT/HCPCS: 36415; 85027; 86592; 86850; 86900; 86901; 87806

== ENCOUNTER 2024-07-09 09:53 | Inpatient (IN) | payer OTHER, SELFPAY ==
[2024-07-09] VITALS (52 sets, daily range): BP systolic 101–128; BP diastolic 56–99; PULSE 66–156; RESP 13–20; TEMP 36.4–37.6; O2SAT 97–100; BMI 33.5
[2024-07-09] MEDS: ACETAMINOPHEN 500 MG TABLET 1000 MG PO (10:19)
[2024-07-09] MEDS: LACTATED RINGERS 1,000 ML 125 ML IV CONT ×2 (10:32→11:24)
--- NOTE | 2024-07-09 11:41 | P.HP_ITS ---
H&P: HPI History of Present Illness Date/Time: 07/09/24 10:22 Chief Complaint: repeat Narrative: Brittany is a 28yo @ 39.4wks who presents for repeat delivery. She has had regular care. She reports good movement. No ctx, vb, lof. Her is complicated by: - conceived by IUI - H/o ; for repeat - H /o IUGR - ASA 81mg - CMV/parvo non-immune Review of Systems Constitutional: Constitutional: Denies chills, Denies fever(s) and Denies hea dache(s) Eyes: Eyes: Denies change in vision ENT: Denies headache(s) Cardiovascular: Cardiovascular: Denies chest pain and Denies dyspnea Respiratory: Respiratory: Denies dyspnea Genitourinary: Genitourinary: Denies abnormal vaginal bleeding and Denies vaginal discharge Neurologic: Denies headache(s) Psychiatric: Psychiatric: Denies anxiety and Denies depression [facility] Past Medical History Medical History Encounter for fertility preservation procedure prior to surgical removal of gonads Family History Family History Father Hypertension Social History Social History Smoking status: Never smoker Second hand tobacco smoke exposure: No Alcohol intake: former Substance use: never Substance use type: does not use Do You Feel Safe in your Home?: Yes Lack of Transportation: No Lack of Food: Never True Current Housing: I Have Housing Concerned About Future Housing: No Difficulty Paying Gas/Electric Bills: No Difficulty Paying for Meds: No Currently Unemployed: No Education: Associate Degree Difficulty w/ Childcare or Family Care: No Living arrangements: with family 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 Gender identity (if verbalized by the patient): Female Sexual Orientation (if Verbalized by the Patient): Straight or Heterosexual Spiritual care concerns: No Meds Home Medications and Allergies Home Medications ?Medication ?Instructions ?Recorded ?Confirmed ?Type vitamins-iron fumarate 65 1 tablet PO DAILY 90 days #90 tabs 11/26/21 07/02/24 Rx mg iron-folic acid 1 mg tablet aspirin 81 mg chewable tablet 81 mg PO DAILY 01/10/24 07/02/24 History Allergies Allergy/AdvReac Type Severity Reaction Status Date / Time No Known Allergies Allergy Verified 07/02/24 09:18 Exam Const: General: cooperative, healthy appearing, comfortable, no acute distress and obese Nutritional Appearance: obese Orientation/consciousness: patient oriented x3 Resp: Effort & Inspection: normal respiratory effort Cardio: Rate: regular rate GI: GI Palp: No abdominal tenderness : Other: FHT's: 150's/ mod james/ + accels/ no decels - cat 1 TOCO: irregular ctxs Membranes: intact Presentation: cephalic Skin: General skin exam: normal color Neuro: General: patient oriented x3 Extrem: General: normal to inspection Psych: Appearance: grossly normal Affect: normal affect Attitude: cooperative Assessment and Plan Assessment and plan (1) H/O section: Code(s): Z98.891 - History of uterine scar from previous surgery Status: Acute Plan - H/o x1 for IUGR/breech - Proceed with repeat section - Risks and benefits discussed in detail - Ancef 2g IV once - Anesthesia consult
--- NOTE | 2024-07-09 11:42 | WPDHPUPDATE1 ---
History and Physical Update Update Date/Time: 07/09/24 11:42 History and Physical has been reviewed, including an updated exam of the patient. There are NO changes in the patient's condition. Risks, benefits, and alternatives have been discussed and questions answered. Patient agrees to proceed with procedure.
[2024-07-09] MEDS: ONDANSETRON INJ 4 MG/2 ML VIAL IV PUSH (12:02)
[2024-07-09] MEDS: FAMOTIDINE 20 MG/2 ML VIAL IV PUSH (12:02)
--- NOTE | 2024-07-09 12:50 | WPDANESEPPF ---
Anes - Initial Pre Proc Eval Procedure: Operation Date: 07/09/24 12:00 Proposed Procedures p Section - Lilo Dove MD Date/Time: 07/09/24 12:50 Surgeon: Lilo Dove MD Pre Op Diagnosis: prior C/Section Patient Data Age: 28 Gender: F Height: 1.55 m Weight: 80.4 kg Last Vital Signs Temp 37.6 C H 07/09/24 11:01 Pulse 120 H 07/09/24 10:56 BP 127/80 07/09/24 10:56 Allergies Allergy/AdvReac Type Severity Reaction Status Date / Time No Known Allergies Allergy Verified 07/02/24 09:18 Home Medications ?Medication ?Instructions ?Recorded ?Confirmed ?Type vitamins-iron fumarate 65 1 tablet PO DAILY 90 days #90 tabs 11/26/21 07/02/24 Rx mg iron-folic acid 1 mg tablet aspirin 81 mg chewable tablet 81 mg PO DAILY 01/10/24 07/02/24 History Patient hx anesthesia problems: none Family hx anesthesia problems: none Results Review: All pre-operative results and documents have been reviewed as part of the pre-operative evaluation. [facility] Past Medical History Medical History Encounter for fertility preservation procedure prior to surgical removal of gonads Family History Family History Father Hypertension Social History Social History Smoking status: Never smoker Second hand tobacco smoke exposure: No Alcohol intake: former Substance use: never Substance use type: does not use Do You Feel Safe in your Home?: Yes Lack of Transportation: No Lack of Food: Never True Current Housing: I Have Housing Concerned About Future Housing: No Difficulty Paying Gas/Electric Bills: No Difficulty Paying for Meds: No Currently Unemployed: No Education: Associate Degree Difficulty w/ Childcare or Family Care: No Living arrangements: with family 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 Informed Consent: The patient's anesthetic plan and its attendant risks and benefits were discussed with the patient/family/POA. Questions were solicited and answers provided to the satisfaction of the patient/family/POA.
[2024-07-09] MEDS: ceFAZolin 2 GM/D5W 50 ML 2 GM/50 ML BAG IVPB (12:54)
--- NOTE | 2024-07-09 14:06 | P.PCNOB_ITS ---
OB - Delivery Note Procedure Delivery date: 07/09/24 Pre-op diagnosis: Previous Delivery Post-op Diagnosis: Same Induction method: None Delivery monitor: External FHT Procedure Performed: Repeat Secondary branch: low cervical, transverse Surgeon: Lilo Dove MD Anesthesia type: Spinal Description of Procedure/Findings: Clear fluid noted. Male infant delivered with nuchal x2; and he was immediately handed off to the pediatric team. Normal ovaries and fallopian tubes bilaterally. Good hemostasis at end of case. Specimen: Yes (placenta) Estimated Blood Loss: 260 Pathology: Yes (placenta) Complications: No immediate complications Condition: Stable Disposition: [place] Baby Date of : 07/09/24 Gestational Age by Date: 39 (.4) Infant gender: Male Weight (pounds): 9 Weight (ounces): 0 presentation: vertex position: Left Occiput Transverse Placenta delivery description: Expressed Cord Vessel Description: 3 Vessels, Nuchal Cord (x2; tight) and Reduced score one minute: 3 score five minutes: 7 Narrative: Brittany was counseled on all risks and benefits in detail. She was taken to the operating room where spinal was placed and found to be adequate. She was then prepped and draped in the normal sterile fashion. She received 2g Ancef and a time out was performed. A Pfannenstiel incision was made in the skin and carried down to the underlying fascia. The fascia was nicked on either side of the midline and the fascial incision was extended laterally and superiorly using curved Harris scissors. The fascia was then elevated using Libia clamps and the underlying rectus muscles were dissected off the fascia, superiorly and inferiorly. The rectus muscles were then in the midline and the peritoneum was entered sharply. Once adequate exposure was obtained, a Mobius self retractor was placed within the abdomen. A bladder flap was created. A low transverse incision was made on the lower uterine segment and clear fluid was noted. The occiput was brought to the hysterotomy and the head was easily delivered. Nuchal cord was noted x2; but too tight to be reduced. The shoulders and body then followed without complications. The infant had decreased tone, cry, and color; the mouth and nose were bulb suctioned and the cord was immediately clamped and cut and the was handed off to the [facility] pediatric nurse. A segment of the cord was collected for cord gases. The remaining cord blood was collected for typing. With Pitocin infusing, the placenta delivered with gentle traction on the cord without complications. The uterus was then cleared out of all clots and debris using a clean, moist lap. The hysterotomy was then repaired in a running fashion using 0 Vicryl. A second layer imbricating suture was then made using 0 Vicryl. At the mid portion of the hysterotomy, bleeding was noted and 3 locking stitches using 0-Vicryl were placed and the hysterotomy was found to be hemostatic and good uterine tone was noted. The bilateral adnexa were examined and found to be normal. The pelvis was cleared of all clots and fluid. The Mobius retractor was removed from the abdomen. The peritoneum, muscle, and fascia were examined and made hemostatic with Bovie cautery. The fascia was then repaired using a 0 Vicryl suture in a running fashion. The subcutaneous tissue was then irrigated and made hemostatic with Bovie cautery. The subcutaneous tissue was then reapproximated using 2-0 Vicryl. The skin was then closed using 4-0 Monocryl in a running subcuticular fashion. Sponge, lap, needle and instrument counts were correct at the end of the procedure x2. The patient tolerated the procedure well and was taken to recovery in a stable condition.
[2024-07-09] MEDS: OXYTOCIN 30 UNITS/NS 500 ML 30 UNITS/500 ML BAG 125 UNITS IV CONT (14:32)
--- NOTE | 2024-07-09 16:30 | SUR.PHASEI ---
1610-- in nursery, transport team on their way to pick up for transport to [facility]. Pt. moved to nursery to see at this time.
[2024-07-09] MEDS: KETOROLAC 15 MG/ML VIAL (*BKC) IV PUSH ×2 (16:48→22:53)
[2024-07-09] MEDS: ACETAMINOPHEN 325 MG TABLET 650 MG PO ×2 (16:49→22:52)
--- NOTE | 2024-07-09 16:57 | OBPPTRN ---
Patient transferred to post room #286 via stretcher. Support person present. Oriented to unit, room, information board, rooming in, admission packet and security measures. Patient verbalizes understanding.
--- NOTE | 2024-07-09 17:46 | PC.NURSE ---
1730. Breast pump provided due to transferred to [facility]. Instructions given on cleaning, care, usage, that there should be no pain, pumping schedule for milk production, collection, and storage of human milk. Patient was assessed for correct placement, flange size, to pump for comfort and nipple stretching/stimulation for adequate milk production every 3 hours (8 times in 24 hours) 1-2 times at night. Parents are encouraged to record the pumping schedule on the feeding sheet.?Mother voiced understanding of the education shared along with mom/baby guide and the pump measurement, flange fit handout for additional resource information. Reported to the Primary RN.
[2024-07-09] MEDS: DEXTROSE 5%/0.45% SOD CHL 1,000 ML 125 ML IV CONT (18:40)
[2024-07-10 00:45] VITALS: BP 100/52; PULSE 88; RESP 16; TEMP 37.2; O2SAT 97
[2024-07-10 04:05] VITALS: BP 100/59; PULSE 94; RESP 16; TEMP 36.5; O2SAT 99
[2024-07-10 04:59] LABS: Basophils Percent Auto 0.5 % (0.2-1.2); Eosinophils Absolute Auto 0.1 K/mm3 (0-0.3); Hematocrit 34.5 % (37.0-47.0); Hemoglobin 11.2 g/dL (12.0-15.0); Immature Granulocyte Absolute 0.03 K/mm3 (0.00-0.031); Immature Granulocyte Percent A 0.4 % (0-0.5); Lymphocytes Absolute Auto 2.65 K/mm3 (0.9-3.2); Lymphocytes Percent Auto 32.2 % (18.3-44.2); Mean Corpuscular HGB Conc 32.5 g/dl (32-36); Mean Corpuscular Hemoglobin 29.6 pg (26-34); Mean Corpuscular Volume 91.3 fl (80-100); Mean Platelet Volume 11.2 fl (7.4-10.4); Monocytes Absolute Auto 0.4 K/mm3 (0.1-0.6); Monocytes Percent Auto 4.3 % (2.6-8.5); Neutrophils Absolute Auto 5.1 K/mm3 (1.3-6.7); Neutrophils Percent Auto 61.6 % (45.5-73.1); Platelet Count Result 145 k/mm3 (150-375); Red Blood Count 3.78 M/mm3 (4.2-5.4); Red Cell Distribution Width 13.8 % (11.5-14.5); White Blood Count 8.2 K/mm3 (4.5-10.0)
[2024-07-10] MEDS: KETOROLAC 15 MG/ML VIAL (*BKC) IV PUSH ×2 (05:50→11:47)
[2024-07-10] MEDS: ACETAMINOPHEN 325 MG TABLET 650 MG PO ×2 (05:52→11:47)
--- NOTE | 2024-07-10 07:09 | P.PNOB_ITS ---
OB - PN: Subj Subjective Date/time seen: 07/10/24 07:09 Narrative: POD#1 Brittany reports doing well today. 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 Her pain is controlled. She is tolerating regular diet, voiding, passing gas, and ambulating without issues. She denies any issues with her incision. She is pumping. Her son was transferred overnight due to persistent respiratory distress/possible need for cooling. She would like to go see her son today, may want to just be discharged. OB - PN: Obj Data Labs 07/10/24 04:15 Labs: Laboratory Results - last 24 hr 07/10/24 04:15 WBC 8.2 RBC 3.78 L Hgb 11.2 L Hct 34.5 L MCV 91.3 MCH 29.6 MCHC 32.5 RDW 13.8 Plt Count 145 L MPV 11.2 H Immature Gran % (Auto) 0.4 Neut % (Auto) 61.6 Lymph % (Auto) 32.2 [place] % (Auto) 4.3 Eos % (Auto) 1.0 Baso % (Auto) 0.5 Lymph # (Auto) 2.65 [place] # (Auto) 0.4 Eos # (Auto) 0.1 Baso # (Auto) 0.0 Abs Immat Gran (auto) 0.03 Absolute Neuts (auto) 5.1 Absolute Nucleated RBC 0.000 Nucleated RBC % 0.0 OB - PN A/P Assessment and Plan (1) S/P section: Code(s): Z98.891 - History of uterine scar from previous surgery Status: Acute Plan day: 1 Plan: routine care and discharge home Comments: - PO pain meds - Regular diet - Ambulation and hydration encouraged - Continue pumping q2-3hr - Ok to go on day pass to go see her son - Pelvic rest; take meds as prescribed - ER return precautions: fever, n/v/abd pain, bleeding, HTN Time Spent With Patient Time: Total time spent is greater than 50% in coordination of care (as documented) at patient's floor/unit and/or counseling patient: Review of Systems 2 Constitutional: Constitutional: Denies chills, Denies fever(s) and Denies headache(s) Eyes: Eyes: Denies change in vision ENT: Denies dizziness and Denies headache(s) Cardiovascular: Cardiovascular: Denies chest pain, Denies palpitations and Denies dyspnea Respiratory: Respiratory: Denies cough and Denies dyspnea Gastrointestinal: Gastrointestinal: Denies nausea and Denies vomiting Genitourinary: Comments: normal bleeding Neurologic: Denies dizziness and Denies headache(s) Endocrine: Endocrine: Denies palpitations Exam 2 Const: General: cooperative, healthy appearing, comfortable and no acute distress Nutritional Appearance: obese Orientation/consciousness: patient oriented x3 Resp: Effort & Inspection: normal respiratory effort Auscultation: clear to auscultation bilaterally Cardio: Rate: regular rate GI: Inspection: non-distended and incision (covered with clean dressing) GI Palp: Yes abdominal tenderness (appropriate) and Yes Soft to palpation A uscultation: normal bowel sounds : Other: fundus firm Skin: General skin exam: normal color Neuro: General: patient oriented x3 Extrem: General: normal to inspection Psych: Appearance: grossly normal Affect: normal affect Attitude: c ooperative
[2024-07-10 07:50] VITALS: BP 127/71; PULSE 102; RESP 18; TEMP 37.2; O2SAT 99
[2024-07-10] MEDS: MULTIVIT/MIN/PREN/FOL AC/IRON TABLET 1 TAB PO (08:35)
[2024-07-10] MEDS: SIMETHICONE 80 MG TAB.CHEW PO ×2 (08:36→11:46)
[2024-07-10] MEDS: DOCUSATE SODIUM 100 MG CAPSULE PO (08:36)
[2024-07-10] MEDS: LIDOCAINE 5% PATCH 1 PATCH TRANSDERM (08:36)
--- NOTE | 2024-07-10 10:45 | WPDANLDPN2 ---
Anes-Prog Note L&D Date/Time: 07/10/24 10:45 Comfortable throughout: section Neuraxial method: spinal Epidural/Spinal procedure site: clean & non-tender Neuro status: Neuro function grossly intact. Cardiovascular status: normal Respiratory status: normal Airway patency: baseline Mental status: baseline Post-Op hydration status: normal Vital Signs: Last Vital Signs Temp 99 F 07/10/24 07:50 Pulse 102 H 07/10/24 07:50 Resp 18 07/10/24 07:50 BP 127/71 07/10/24 07:50 Pulse Ox 99 07/10/24 07:50 O2 Del Method Room Air 07/09/24 19:45 Pain score (VAS): 0/10 I/O: Intake & Output 07/09/24 07/10/24 07/10/24 23:59 07:59 15:59 Output Total 400 1400 Balance -400 -1400 Post-procedural complaints: none Patient feedback: Patient satisfied with anesthetic care.
--- NOTE | 2024-07-10 10:46 | WPDANLDNPN2 ---
Anes-Prog Note L&D-Neuraxial Date/Time: 07/10/24 10:46 Neuraxial medications: intrathecal PF morphine Opiod-related complaints: none Patient feedback: Patient satisfied with post-operative pain management.
--- NOTE | 2024-07-10 11:00 | PC.NURSE ---
Consulted with mother concerning needs and she shared her ability to pump independently. Mother is hoping to feed directly at the breast when infant is ready. Encouraged consistency with pumping and she says she pumps every 2-3 hours. She sometimes fills a syringe or just gets drops. Reassured her that this is normal for the immediate period. Infant is being cooled at [facility] currently. Reinforced understanding of milk production, transition of milk, prevention/relief of engorgement, plugged ducts, mastitis, community resources, and when to call a provider using the resource of the feeding sheet along with the mom and baby guide. Encouraged patient to call for an outpatient appointment if needed to assist baby in transitioning to the breast after his discharge. Mother voiced understanding of the information shared, is confident to continue effectively pumping at home, when to call for assistance, denies any additional assistance or education at this time. Reported to the Primary RN.
[2024-07-10 12:54] VITALS: BP 120/60; PULSE 96; RESP 16; TEMP 37.4; O2SAT 99
[2024-07-10] MEDS: HYDROcodone/acetaminophen (*CRX) 10-325 MG TABLET 1 TAB PO (12:57)
--- NOTE | 2024-07-11 13:19 | PM.OBDSVD ---
DS: Admitting Diagnosis Discharge Date 07/10/24 Admitting Diagnosis Previous section DS: Discharge Diagnosis Discharge Diagnosis (1) S/P section: Code(s): Z98.891 - History of uterine scar from previous surgery Status: Acute OB - DS: Summary OB Procedures : Ultrasound OB Procedures Intrapartum: (repeat) low cervical, transverse OB Procedures: : None Peripartum Data Infant Delivery Method: Section Procedures: Procedures Operation Date: 07/09/24 12:00 Actual Procedure Side Surgeon p Section Lilo Dove MD complications: none 1: Gender: Male Disposition of : NICU Status at Discharge Functional status at discharge: independent ambulation Overall status at discharge: patient is back to baseline Time Spent with Patient Time attestation: Total time spent providing and/or coordinating discharge services: Exam Const: General: cooperative, comfortable and no acute distress Orientation/consciousness: patient oriented x3 Resp: Effort & Inspection: normal respiratory effort Auscultation: clear to auscultation bilaterally Cardio: Rate: regular rate GI: Inspection: non-distended and incision (covered with clean dressing) GI Palp: No abdominal tenderness and Yes Soft to palpation Auscultation: normal bowel sounds : Other: fundus firm Skin: General skin exam: normal color Neuro: General: patient oriented x3 Extrem: General: normal to inspection Psych: Appearance: grossly normal Affect: normal affect Attitude: cooperative Discharge Plan Discharge Attending physician on discharge: Lilo Dove Consulting providers: Aldair Hill; Hollis Arauz Jr. Discharging Clinician: Lilo Dove Patient Disposition: Home, Self-Care Activity: may shower, no straining, may drive after 2 weeks and pelvic rest Diet: regular Discharge Instructions: Education: Mom and Baby Guide Given to: Mother Follow-Up: Call your delivering provider's office for an appointment to be seen in: 1 Week Mom and baby should come to the [facility] for the follow-up appointment. Appointment Date/Time: July 12, 2024 at 11:00 am What to expect at your follow-up visit: Physical Assessment Call [phone] if you are unable to keep your appointment time. BREAST CARE: * Wear a snug supportive bra. * For engorgement discomfort: Breast Feeding: * Apply warm moist washcloths * Express milk as needed to relieve engorgement * Wear loose clothing * For sore nipples: * Identify correct latch-on * Apply warm moist washcloths before and after nursing * Air dry nipples after nursing * May apply Lansinoh cream to nipples ABDOMINAL INCISION: (if applicable) * Allow incision to air dry * Do NOT use lotions for powders on your incision * When showering, allow soap and water to run over the incision, but do not wash incision EPISIOTOMY/PERINEAL CARE: * Until bleeding stops, use your brittany bottle after urinating * Change your pad frequently throughout the day * No tub baths until seen by your physician - You may shower ACTIVITY: * Rest as much as possible. * Do not exercise or lift anything heavier than your baby (such as laundry or other children.) * Avoid stairs or driving as much as possible. * Do not put anything into the vagina. No douching, tampons, or sexual activity until seen by physician. NOTIFY PHYSICIAN IF YOU HAVE ANY QUESTIONS OR IF ANY OF THE FOLLOWING SYMPTOMS OCCUR: * If your incision becomes red, swollen, or more painful than what you have experienced in the hospital. * If your vaginal bleeding becomes foul smelling. * If your vaginal bleeding becomes more heavy than a period or if your bleeding changes from pink to bright red. However, you may pass an occasional walnut-sized clot once or twice for the first week . * If you experience a sharp, shooting pain in you calves. * If you discover a hard, reddened area on your breast or if you experience flu-like symptoms. DIET: * Eat regular, well-balanced meals. * Drink plenty of fluids daily. If , drink to thirst. Patient Instructions: (DC) Patient Language: Gabonese Stand Alone Forms: General Discharge Information Follow-up/Referrals: Lilo Dove MD [Physician] - 4 Weeks Discharge Medications: New acetaminophen 325 mg Tablet 650 mg PO Q6H Qty: 60 0RF hydrocodone-acetaminophen 5-325 mg Tablet 1 tablet PO Q3H PRN (Reason: Breakthrough Pain Rated 4-6) Qty: 24 0RF docusate sodium 100 mg Capsule 100 mg PO BID Qty: 90 0RF lidocaine [Lidoderm] 5 % Adhesive Patch,Medicated 1 patch transdermal DAILY PRN (Reason: Incision pain) Qty: 15 0RF ibuprofen 600 mg Tablet 600 mg PO Q6H Qty: 40 0RF Continued vit-iron fum-folic ac 65 mg iron- 1 mg tablet 1 tablet PO DAILY 90 Days Qty: 90 0RF Discontinued aspirin 81 mg tablet,chewable 81 mg PO DAILY Date of admission: 07/09/24 09:53 Primary Care Provider: Charlotte Palmer Admitting Provider: Lilo Dove Attending physician on admission: Lilo Dove Condition: Stable
[2024-07-12 10:59] VITALS: BP 125/72; PULSE 73; RESP 18; TEMP 36.6; O2SAT 100
== END 2024-07-10 14:02 | disposition home or self-care (01) | DRG 788 ==
LOC: ANHLDR 10:06 → ANHOB2 17:02
PROVIDERS: Admitting Provider Obstetrics & Gynecology; PCP Internal Medicine; Visit Provider Obstetrics & Gynecology
PROC: 10D00Z1 Extraction of Products of Conception, Low, Open Approach (ICD-10-PCS; CPT 59514; principal; 2024-07-09 12:00)
DX: O69.1XX0 Labor and delivery complicated by cord around neck, with compression, not applicable or unspecified (principal); Z3A.39 39 weeks gestation of pregnancy; Z37.0 Single live birth
CPT/HCPCS: 36415; 85025; A9270; J0690; J1885; J2274; J2371; J2405; J2590; J7120